=== PATIENT | female | born 1995 | race Two or more races ===

== ENCOUNTER 2021-10-25 17:54 | Emergency (ER) | payer OTHER ==
[~2021-10-25] VITALS: Ht 160 cm; Wt 60.3 kg
[~2021-10-25 17:54] MED LIST: ACETAMINOPHEN650 M2 PO; MELATONIN10 MG PO; MOTRIN IB200 MG; MUCINEX DM ER1 EAC1 PO; PEPCID AC20 MG PO; TIROSINT13 MCG; VITAMIN C WIT1000 MG PO
[2021-10-25] MEDS ORDERED: LEVOTHYROXINE25 MC2 PO (18:07)
[2021-10-25] MEDS ORDERED: ZITHROMAX500 MG PO (21:17)
[2021-10-25] MEDS ORDERED: TUSNEL LIQUID178 ML PO (21:17)
== END 2021-10-25 21:31 | disposition home or self-care (01) ==
LOC: ER 17:54
DX: J06.9 Acute upper respiratory infection, unspecified (principal); A49.3 Mycoplasma infection, unspecified site; Z20.822 Contact with and (suspected) exposure to COVID-19

== ENCOUNTER 2022-05-08 22:39 | Emergency (ER) | payer OTHER ==
[~2022-05-08] VITALS: Ht 160 cm; Wt 61.2 kg
[~2022-05-08 22:39] MED LIST changes: +LEVOTHYROXINE25 MC2 PO; +TUSNEL LIQUID178 ML PO; +ZITHROMAX500 MG PO
[2022-05-08] MEDS ORDERED: MOTRIN IB200 M1 (23:45)
[2022-05-09] MEDS ORDERED: MONISTAT 315 GM VAG (03:47)
[2022-05-09] MEDS ORDERED: CEPHALEXIN500 MG PO (03:47)
[2022-05-09] MEDS ORDERED: PYRIDIUM DS200 MG PO (03:50)
== END 2022-05-09 04:00 ==
LOC: ER 22:39
DX: R30.0 Dysuria (principal); B37.31 Acute candidiasis of vulva and vagina

== ENCOUNTER 2024-04-21 07:50 | Inpatient (IN) | payer OTHER ==
[~2024-04-21] VITALS: Ht 152.4 cm; Wt 64.9 kg
[~2024-04-21 07:50] MED LIST changes: +CEPHALEXIN500 MG PO; +MONISTAT 315 GM VAG; +MOTRIN IB200 M1; +PYRIDIUM DS200 MG PO
[2024-04-21] MEDS ORDERED: METHYLPREDNISOLONE SOD SUCC 40 MG VIAL IM ONE (09:15)
[2024-04-21] MEDS ORDERED: CEFTRIAXONE SODIUM 1,000 MG VIAL IM ONE (09:15)
[2024-04-21] MEDS ORDERED: GUAIFENESIN 200 MG/10 ML BLIST.PACK PO ONE (09:15)
[2024-04-21 09:49] LABS: HEMATOCRIT 39.9 % (36.0-45.00); HEMOGLOBIN 13.9 g/dL (12.0-15.00); MEAN CELL VOLUME 92.1 fL (80.00-100.00); MEAN CORPUSCULAR HGB CONC 34.7 g/dl (32.0-36.0); PLATELET COUNT 319 K/uL (150-450); RED BLOOD COUNT 4.33 M/uL (4.00-6.00); RED CELL DISTRIBUTION WIDTH 12.8 % (11.5-14.5)
[2024-04-21 11:56] LABS: URINE APPEARANCE Clear; URINE BILIRRUBIN Negative (NEGATIVE); URINE BLOOD Negative; URINE COLOR Yellow; URINE GLUCOSE Negative (NEGATIVE); URINE KETONE Trace (NEGATIVE); URINE LEUKOCYTE Trace; URINE NITRATE Negative; URINE PROTEIN Negative (NEGATIVE); URINE UROBILINOGEN 0.2 E.U./dl
[2024-04-21 12:02] LABS: URINE BACTERIA 187.7 uL (0.0-1933); URINE EPITHELIAL CELLS 7.3 uL (0.0-38.8); URINE RBC 18.1 uL (0.0-20.8)
[2024-04-21 12:11] LABS: URINE WBC 1.3 uL (0.0-23.2)
[2024-04-21 12:30] LABS: ALBUMIN 3.6 gm/dL (3.4-5.0); BILIRUBIN TOTAL 0.5 mg/dL (0.3-1.2); CALCIUM 8.8 mg/dL (8.5-10.1); CREATININE SERUM 0.68 mg/dL (0.55-1.02); GFR 102.29; GLOBULINA 3.8 G/DL (2.4-3.5); POTASSIUM 4.42 mEq/L (3.5-5.1); TOTAL PROTEIN 7.4 gm/dL (6.4-8.2)
[2024-04-21] MEDS ORDERED: PIPERACILLIN/TAZOBACTAM SODIUM 3.375 GM VIAL IV SCH (14:24)
[2024-04-21] MEDS ORDERED: 0.9 % SODIUM CHLORIDE 1,000 ML IV ONE (14:30)
[2024-04-21] MEDS ORDERED: LORazepam 2 MG/ML VIAL IV ONE (15:00)
[2024-04-21] MEDS ORDERED: DIPHENHYDRAMINE HCL 50 MG/ML VIAL 1ML IV ONE (15:15)
[2024-04-21] MEDS ORDERED: IPRATROPIUM BROMIDE 0.5 MG/2.5 ML AMPUL.NEB IH SCH (18:27)
[2024-04-21] MEDS ORDERED: AZITHROMYCIN 500 MG in 0.9 % SODIUM CHLORIDE 250 ML IV SCH (18:29)
[2024-04-21] MEDS ORDERED: FAMOTIDINE/PF 20 MG in 0.9 % SODIUM CHLORIDE 8 ML IV PUSH SCH (18:29)
[2024-04-21] MEDS ORDERED: ACETAMINOPHEN 500 MG GEL..CAP PO PRN (18:30)
[2024-04-21] MEDS ORDERED: 0.9 % SODIUM CHLORIDE 1,000 ML IV SCH (18:30)
[2024-04-21] MEDS ORDERED: LEVALBUTEROL HCL 1.25 MG/3 ML SOLUTION IH SCH (21:00)
[2024-04-21] MEDS ORDERED: GUAIFEN/DEXTROMETHORPHAN/PE 10 ML BLIST.PACK PO SCH (21:00)
[2024-04-22] MEDS ORDERED: METHYLPREDNISOLONE SOD SUCC 40 MG VIAL IV SCH (01:00)
[2024-04-22 01:26] VITALS: BP 114/80; O2SAT 98
[2024-04-22 07:12] LABS: PARTIAL THROMBOPLASTIN TIME 31.3 SECONDS (22.0-34.0); PROTHROMBIN TIME 10.9 SECONDS (9.0-11.5)
[2024-04-22 07:24] LABS: T4 FREE 1.06 NG/ML (0.76-1.46); TSH 0.914 uIU/mL (0.358-3.74)
[2024-04-22 08:28] VITALS: BP 104/65; O2SAT 98
[2024-04-22 08:32] VITALS: BP 95/62; O2SAT 99
[2024-04-22] MEDS ORDERED: CEFTRIAXONE SODIUM 2,000 MG in 0.9 % SODIUM CHLORIDE 100 ML IV SCH (09:00)
[2024-04-22] MEDS ORDERED: LEVALBUTEROL HCL 1.25 MG/3 ML SOLUTION IH SCH (14:00)
[2024-04-22 16:39] VITALS: BP 116/55
[2024-04-22] MEDS ORDERED: FLUTICASONE PROPIONATE 50 MCG SPRAY NASAL SCH (20:24)
[2024-04-22] MEDS ORDERED: LORATADINE 10 MG TABLET PO SCH (20:25)
[2024-04-23] MEDS ORDERED: METHYLPREDNISOLONE SOD SUCC 40 MG VIAL IV SCH (01:00)
[2024-04-23 01:49] VITALS: BP 116/86; O2SAT 98
[2024-04-23 09:16] LABS: HEMATOCRIT 42.8 % (36.0-45.00); HEMOGLOBIN 14.9 g/dL (12.0-15.00); MEAN CELL VOLUME 91.7 fL (80.00-100.00); MEAN CORPUSCULAR HEMOGLOBIN 31.9 pg (27.00-32.0); MEAN CORPUSCULAR HGB CONC 34.8 g/dl (32.0-36.0); PLATELET COUNT 413 K/uL (150-450); RED BLOOD COUNT 4.66 M/uL (4.00-6.00); RED CELL DISTRIBUTION WIDTH 13.1 % (11.5-14.5)
[2024-04-23 10:35] LABS: ALBUMIN 4.2 gm/dL (3.4-5.0); BILIRUBIN TOTAL 0.42 mg/dL (0.3-1.2); CALCIUM 10.4 mg/dL (8.5-10.1); CREATININE SERUM 0.83 mg/dL (0.55-1.02); GFR 81.27; GLOBULINA 4.3 G/DL (2.4-3.5); POTASSIUM 4.71 mEq/L (3.5-5.1); TOTAL PROTEIN 8.5 gm/dL (6.4-8.2)
[2024-04-23 10:38] VITALS: BP 128/76; O2SAT 97
[2024-04-23] MEDS ORDERED: CLONAZEPAM 0.5 MG TABLET PO STA (11:23)
[2024-04-23] MEDS ORDERED: DIATRIZOATE MEGLUMINE, SODIUM 30 ML BOTTLE PO NR (12:00)
[2024-04-23 17:04] VITALS: BP 118/74
[2024-04-23] MEDS ORDERED: FAMOTIDINE/PF 20 MG in 0.9 % SODIUM CHLORIDE 8 ML IV PUSH SCH (21:00)
[2024-04-23] MEDS ORDERED: CLONAZEPAM 0.5 MG TABLET PO SCH (21:00)
[2024-04-24] VITALS: BP 122/82
[2024-04-24 07:44] LABS: HEMATOCRIT 36.7 % (36.0-45.00); HEMOGLOBIN 12.7 g/dL (12.0-15.00); MEAN CELL VOLUME 92.1 fL (80.00-100.00); MEAN CORPUSCULAR HEMOGLOBIN 31.9 pg (27.00-32.0); MEAN CORPUSCULAR HGB CONC 34.7 g/dl (32.0-36.0); PLATELET COUNT 320 K/uL (150-450); RED BLOOD COUNT 3.98 M/uL (4.00-6.00); RED CELL DISTRIBUTION WIDTH 12.7 % (11.5-14.5)
[2024-04-24 08:43] VITALS: BP 116/70; O2SAT 98
[2024-04-24] MEDS ORDERED: BROMPHENIRAM/PHENYLEPHRINE/DM 5 ML BLIST.PACK PO SCH (09:54)
== END 2024-04-24 13:59 | disposition home or self-care (01) | DRG 203 ==
LOC: ER 07:51 → MEDI 19:11
PROVIDERS: General Practice; ADMIT Internal Medicine; ATTEND Internal Medicine
PROC: BB24ZZZ Computerized Tomography (CT Scan) of Bilateral Lungs (ICD-10-PCS; principal; 2024-04-21)
PROC: 3E0F7GC Introduction of Other Therapeutic Substance into Respiratory Tract, Via Natural or Artificial Opening (ICD-10-PCS; 2024-04-21)
PROC: BW21ZZZ Computerized Tomography (CT Scan) of Abdomen and Pelvis (ICD-10-PCS; 2024-04-23)
DX: J20.9 Acute bronchitis, unspecified (principal); J02.9 Acute pharyngitis, unspecified; J01.90 Acute sinusitis, unspecified; D72.828 Other elevated white blood cell count; E03.9 Hypothyroidism, unspecified; F41.1 Generalized anxiety disorder; N80.9 Endometriosis, unspecified

== ENCOUNTER 2024-09-09 09:10 | Emergency (ER) | payer OTHER ==
[~2024-09-09] VITALS: Ht 177.8 cm; Wt 63.5 kg
[2024-09-09] MEDS ORDERED: CRYSELLE-28 TA1 EACH PO (09:26)
[2024-09-09] MEDS ORDERED: TRAMADOL HCL 50 MG TABLET PO ONE (09:45)
[2024-09-09 10:10] LABS: HEMATOCRIT 39.1 % (36.0-45.00); HEMOGLOBIN 13.5 g/dL (12.0-15.00); MEAN CELL VOLUME 90.4 fL (80.00-100.00); MEAN CORPUSCULAR HEMOGLOBIN 31.3 pg (27.00-32.0); MEAN CORPUSCULAR HGB CONC 34.6 g/dl (32.0-36.0); PLATELET COUNT 378 K/uL (150-450); RED BLOOD COUNT 4.33 M/uL (4.00-6.00); RED CELL DISTRIBUTION WIDTH 13.6 % (11.5-14.5)
[2024-09-09 11:03] LABS: PH,URINE 5.5 (5.0-8.0); URINE APPEARANCE Clear; URINE BILIRRUBIN Negative (NEGATIVE); URINE BLOOD Large; URINE COLOR Dark Yellow; URINE GLUCOSE Negative (NEGATIVE); URINE KETONE Negative (NEGATIVE); URINE LEUKOCYTE Negative; URINE NITRATE Negative; URINE PROTEIN Negative (NEGATIVE); URINE UROBILINOGEN 0.2 E.U./dl
[2024-09-09 11:05] LABS: URINE BACTERIA 343.9 uL (0.0-1933); URINE EPITHELIAL CELLS 2.2 uL (0.0-38.8); URINE RBC 4013.2 uL (0.0-20.8); URINE WBC 5.8 uL (0.0-23.2)
[2024-09-09] MEDS ORDERED: NORFLEX100MG PO (13:02)
== END 2024-09-09 13:06 | disposition home or self-care (01) ==
LOC: ER 09:12
PROVIDERS: General Practice
DX: N93.9 Abnormal uterine and vaginal bleeding, unspecified (principal)